=== PATIENT | male | born 1970 | race Caucasian/White ===

== ENCOUNTER 2016-12-08 12:45 | Emergency (ER) | payer OTHER ==
[~2016-12-08] VITALS: Ht 175.3 cm; Wt 94.0 kg
[2016-12-08] MEDS ORDERED: SODIUM CHLOR 0.9% 1000 ML INJ 1,000 ML IV ONE ×3 (12:52→15:00)
[2016-12-08] MEDS ORDERED: SODIUM CHLORIDE 0.9% FLUSH 10 ML FLUSH IVF PRN (13:00)
[2016-12-08 13:03] LABS: AUTOMATED NEUTROPHIL # 1.8 TH/MM3 (1.8-7.7); BASOPHIL # 0.1 TH/MM3 (0-0.2); BASOPHIL % 0.9 % (0.0-2.0); EOSINOPHIL # 0.1 TH/MM3 (0-0.4); EOSINOPHIL % 1.6 % (0.0-4.0); HEMATOCRIT 48.1 % (39.0-51.0); HEMO FLAGS DIFF FINAL; LYMPH % 53.7 % (9.0-44.0); LYMPHOCYTE # 3.2 TH/MM3 (1.0-4.8); MEAN CELL VOLUME 90.7 FL (80.0-100.0); MEAN CORPUSCULAR HEMOGLOBIN 29.9 PG (27.0-34.0); MEAN CORPUSCULAR HGB CONC 32.9 % (32.0-36.0); MONO % 12.4 % (0.0-8.0); NEUT % 31.4 % (16.0-70.0); PLATELET COUNT 130 TH/MM3 (150-450); RED BLOOD COUNT 5.31 MIL/MM3 (4.50-5.90); WHITE BLOOD COUNT 5.9 TH/MM3 (4.0-11.0)
--- NOTE | 2016-12-08 13:05 | PD ---
HPI . Syncope Chief Complaint: Syncope Time Seen by Provider: 12:52 Travel History International Travel<30 days: No Contact w/Intl Traveler<30days: No History of Present Illness HPI Patient presents by private vehicle after an apparent syncopal episode. His reports that he stopped breathing. They had been doing an insanity workout. They were on their way to get some lunch. He was driving and reported that he wasn't feeling well and that his vision was blurry. They switched spots. Shortly after the started driving, she looked over at him and noticed that he was slumped over, did not appear to be breathing, did not seem to have a pulse and was very saucedo. She subsequently brought him here. She states that it took about 5 minutes to get here. She called 911 and they called ahead to let us know that she was coming. Initial responders here report that the patient was extremely saucedo but was breathing. He is also extremely diaphoretic. Patient states that he felt like his vision was going away. He feels very thirsty. He denies any chest pain or shortness of breath. He denies any muscle cramping. No exacerbating or relieving factors. Symptoms are severe. 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 It is not unusual for him to work out like this. However, he doesn't think that he's been getting enough to drink the past few days. [facility] Social History Tobacco Use: No Allergies-Medications (Allergen,Severity, Reaction): Coded Allergies: No Known Allergies (Unverified , 12/08/16) Review of Systems Except as stated in HPI: all other systems reviewed are Neg General / Constitutional: Positive: Other (diaphoresis) Eyes: Positive: Visual changes, Blindness HENT: No: Headaches Cardiovascular: No: Chest Pain or Discomfort Respiratory: No: Shortness of Breath Skin: Positive Other (pallor) Physical Exam Narrative GENERAL: Awake and alert. SKIN: Pale and diaphoretic. HEAD: Atraumatic. Normocephalic. EYES: Pupils equal and round. Extraocular movements are intact. ENT: No nasal bleeding or discharge. Mucous membranes pink and moist. NECK: Trachea midline. Neck is supple. CARDIOVASCULAR: Bradycardic. Heart sounds are normal. RESPIRATORY: No accessory muscle use. Lungs are clear with full air movement throughout. GASTROINTESTINAL: Abdomen soft, non-tender, nondistended. MUSCULOSKELETAL: No obvious deformities. No edema. NEUROLOGICAL: Awake and alert. No obvious cranial nerve deficits. Motor grossly within normal limits. Normal speech. PSYCHIATRIC: Appropriate mood and affect; insight and judgment normal. Data Data Last Documented VS Vital Signs Date Time Temp Pulse Resp B/P Pulse Ox O2 Delivery O2 Flow Rate FiO2 12/08/16 14:34 97 Room Air 12/08/16 13:12 97.5 48 15 120/72 Orders Basic Metabolic Panel (Bmp) (12/08/16 12:52) Complete Blood Count With Diff (12/08/16 12:52) Magnesium (Mg) (12/08/16 12:52) Ckmb (Isoenzyme) Profile (12/08/16 12:52) Troponin I (12/08/16 12:52) Ecg Monitoring (12/08/16 12:52) Iv Access Insert/Monitor (12/08/16 12:52) Oximetry (12/08/16 12:52) Sodium Chloride 0.9% Flush (Ns Flush) (12/08/16 13:00) Sodium Chlor 0.9% 1000 Ml Inj (Ns 1000 M (12/08/16 12:52) CKMB (12/08/16 12:50) CKMB% (12/08/16 12:50) Sodium Chlor 0.9% 1000 Ml Inj (Ns 1000 M (12/08/16 14:00) Electrocardiogram (12/08/16 12:45) Sodium Chlor 0.9% 1000 Ml Inj (Ns 1000 M (12/08/16 15:00) Labs Laboratory Tests Test 12/08/16 12:50 White Blood Count 5.9 TH/MM3 Red Blood Count 5.31 MIL/MM3 Hemoglobin 15.9 GM/DL Hematocrit 48.1 % Mean Corpuscular Volume 90.7 FL Mean Corpuscular Hemoglobin 29.9 PG Mean Corpuscular Hemoglobin 32.9 % Concent Red Cell Distribution Width 13.0 % Platelet Count 130 TH/MM3 Mean Platelet Volume 9.6 FL Neutrophils (%) (Auto) 31.4 % Lymphocytes (%) (Auto) 53.7 % Monocytes (%) (Auto) 12.4 % Eosinophils (%) (Auto) 1.6 % Basophils (%) (Auto) 0.9 % Neutrophils # (Auto) 1.8 TH/MM3 Lymphocytes # (Auto) 3.2 TH/MM3 Monocytes # (Auto) 0.7 TH/MM3 Eosinophils # (Auto) 0.1 TH/MM3 Basophils # (Auto) 0.1 TH/MM3 CBC Comment DIFF FINAL Differential Comment Sodium Level 146 MEQ/L Potassium Level 3.4 MEQ/L Chloride Level 109 MEQ/L Carbon Dioxide Level 24.2 MEQ/L Anion Gap 13 MEQ/L Blood Urea Nitrogen 21 MG/DL Creatinine 1.50 MG/DL Estimat Glomerular Filtration 51 ML/MIN Rate Random Glucose 128 MG/DL Calcium Level 9.9 MG/DL Magnesium Level 2.5 MG/DL Total Creatine Kinase 264 U/L Creatine Kinase MB 1.3 NG/ML Troponin I 0.02 NG/ML MDM Medical Decision Making Medical Screen Exam Complete: Yes Emergency Medical Condition: Yes Interpretation(s) EKG shows sinus bradycardia with a rate of 44. No ST segment elevation or depression. Differential Diagnosis My differential diagnosis of syncope includes but is not limited to cardiac arrhythmia, hypovolemia, anemia, neurological catastrophe, vasovagal response Narrative Course Patient presents following a syncopal episode. This occurred following an extreme work out in the heat. CBC & BMP Diagram 12/08/16 12:50 Patient has started making urine. He looks much improved. Critical Care Narrative Aggregate critical care time was 30 minutes. Time to perform other separately billable procedures was not included in the critical care time. My time did not include minutes spent treating any other patients simultaneously or on activities that did not directly contribute to the patient's treatment. The services I provided to this patient were to treat and/or prevent clinically significant deterioration due to syncope I provided critical care services requiring my management, as noted below: Chart data review, documentation time, medication orders and management, vital sign assessments/reviewing monitor data, ordering and reviewing lab tests, ordering and interpreting/reviewing x-rays and diagnostic studies, care of the patient and discussion of the patient with the admitting physicians Diagnosis Primary Impression: Heat exhaustion Qualified Code: T67.5XXA - Heat exhaustion, initial encounter Patient Instructions: General Instructions, Heat Exhaustion (DC) Disposition: 01 DISCHARGE HOME Condition: Stable Ai Avalos MD Dec 08, 2016 13:05
[2016-12-08 13:12] VITALS: BP 120/72; PULSE 48; RESP 15; TEMP 97.5; O2SAT 97
[2016-12-08 13:15] LABS: CHLORIDE 109 MEQ/L (98-107); POTASSIUM 3.4 MEQ/L (3.5-5.1); SODIUM (NA) 146 MEQ/L (136-145)
[2016-12-08 13:18] LABS: ANION GAP 13 MEQ/L (5-15); BICARBONATE 24.2 MEQ/L (21.0-32.0); BLOOD UREA NITROGEN 21 MG/DL (7-18); MAGNESIUM 2.5 MG/DL (1.5-2.5)
[2016-12-08 13:21] LABS: GLOMERULAR FILTRATION RATE 51 ML/MIN (>89)
[2016-12-08 13:24] LABS: CREATINE KINASE 264 U/L (39-308)
[2016-12-08 13:36] LABS: CKMB 1.3 NG/ML (0.5-3.6)
[2016-12-08 14:34] VITALS: O2SAT 97
[2016-12-08 15:39] VITALS: BP 140/76
--- NOTE | 2016-12-09 13:46 | EKG ---
Date Performed: 12/08/2016 Time Performed: 12:45:30 PTAGE: 46 years EKG: Sinus bradycardia Prolonged QT interval Inferior T wave changes are nonspecific Borderline ECG NO PREVIOUS TRACING DOCTOR: Joey Scott Interpretating Date/Time 12/09/2016 13:42:08
== END 2016-12-08 15:41 | disposition home or self-care (01) ==
LOC: PHED 12:45
DX: T67.5XXA Heat exhaustion, unspecified, initial encounter (principal); R55 Syncope and collapse; H53.8 Other visual disturbances; R61 Generalized hyperhidrosis; R63.1 Polydipsia; R94.31 Abnormal electrocardiogram [ECG] [EKG]; Y93.A9 Activity, other involving cardiorespiratory exercise
CPT/HCPCS: 80048; 82550; 82552; 83735; 84484; 85025; 93005; 96360; 99285; J7030